=== PATIENT | male | born 1980 | race Hispanic/Latino ===

== ENCOUNTER 2017-08-17 11:31 | Emergency (ER) | payer SELFPAY ==
[2017-08-17 11:49] VITALS: TEMP 98.2; O2SAT 100
[2017-08-17] MEDS ORDERED: Sodium Chloride 0.9% 1,000 ML IV STA (12:37)
[2017-08-17 13:33] LABS: BASO # 0.1 K/uL (0.0-0.2); BASO % 0.9 % (0.0-2.0); EOS % 0.1 % (0.0-4.0); HEMOGLOBIN 14.2 g/dL (12.0-18.0); LYMPH # 1.9 K/uL (1.0-4.3); LYMPH % 18.6 % (20.0-40.0); MEAN CORPUSCULAR HEMOGLOBIN 27.2 pg (27.0-31.0); MEAN CORPUSCULAR HGB CONC 33.6 g/dL (33.0-37.0); MEAN PLATELET VOLUME 7.5 fl (7.2-11.7); MONO # 0.7 K/uL (0.0-0.8); MONO % 6.5 % (0.0-10.0); NEUT # 7.7 K/uL (1.8-7.0); NEUT % 73.9 % (50.0-75.0); NRBC % 0.1 % (0.0-0.0); RBC 5.21 Mil/uL (4.40-5.90); RED CELL DISTRIBUTION WIDTH 15.2 % (11.5-14.5); WHITE BLOOD COUNT 10.4 K/uL (4.8-10.8)
[2017-08-17 13:36] LABS: URINE BACTERIA RARE (<OCC); URINE BILIRUBIN NEGATIVE (NEGATIVE); URINE BLOOD NEGATIVE (NEGATIVE); URINE CLARITY CLOUDY (Clear); URINE COLOR AMBER (YELLOW); URINE GLUCOSE (UA) NEG (Normal); URINE LEUKOCYTE ESTERASE NEG Leu/uL (Negative); URINE PROTEIN 30 mg/dL (NEGATIVE)
[2017-08-17 13:50] LABS: ALB/GLOB RATIO 1.1 (1.0-2.1); ALBUMIN 4.7 g/dL (3.5-5.0); ALT/SGPT 24 U/L (21-72); AST/SGOT 31 U/L (17-59); BLOOD UREA NITROGEN 15 mg/dl (9-20); CALCIUM 10.3 mg/dL (8.4-10.2); GFR AFRICAN-AMERICAN > 60; GFR NON-AFRICAN AMERICAN > 60
[2017-08-17 13:51] LABS: BARBITURATES, UR NEGATIVE (NEGATIVE); BENZODIAZEPINES, UR NEGATIVE (NEGATIVE); OPIATES, UR POSITIVE (NEGATIVE); PHENCYCLIDINE, UR NEGATIVE (NEGATIVE)
--- NOTE | 2017-08-17 14:14 | ED PDOC ---
Syncope/Near Syncope/Dizziness Time Seen by Provider: 08/17/17 12:15 Chief Complaint (Nursing): Syncope Chief Complaint (Provider): Syncope History Per: Patient History/Exam Limitations: no limitations Onset/Duration Of Symptoms: Sudden Onset Additional Complaint(s): 37 year old male presents to the emergency department for an evaluation of syncope prior to arrival. Patient states he was at work, felt lightheaded then passed out. He reports that co-workers saw him hit his head as he fell down. In ED, he only complains of left-sided abdominal pain associated with nausea and decreased food or liquid intake, which has been ongoing for a few days. He denies any recent bowel movements, prior abdominal issues or drug use. PMD: none provided Past Medical History Reviewed: Historical Data, Nursing Documentation, Vital Signs Vital Signs: Last Vital Signs Temp 98.2 F 08/17/17 11:48 Pulse 79 08/17/17 11:48 Resp 20 08/17/17 11:48 BP 163/93 H 08/17/17 11:48 Pulse Ox 100 08/17/17 11:48 - Medical History PMH: No Chronic Diseases - Surgical History Surgical History: No Surg Hx - Family History Family History: States: Unknown Family Hx - Social History Current smoker - smoking cessation education provided: No Alcohol: None Drugs: Denies - Allergies Allergies/Adverse Reactions: Allergies Allergy/AdvReac Type Severity Reaction Status Date / Time Penicillins Allergy RASH Verified 08/17/17 12:28 Review of Systems ROS Statement: Except As Marked, All Systems Reviewed And Found Negative Gastrointestinal: Positive for: Nausea, Abdominal Pain (left-sided), Other ( decreased PO intake). Negative for: Diarrhea Neurological: Positive for: Dizziness (lightheaded/LOC), Other (head injury) Physical Exam - Reviewed Nursing Documentation Reviewed: Yes Vital Signs Reviewed: Yes - Physical Exam Appears: Positive for: Non-toxic, No Acute Distress Head Exam: Positive for: ATRAUMATIC, NORMAL INSPECTION, NORMOCEPHALIC Cardiovascular/Chest: Positive for: Regular Rate, Rhythm, Chest Non Tender Respiratory: Positive for: Normal Breath Sounds. Negative for: Wheezing, Respiratory Distress Gastrointestinal/Abdominal: Positive for: Soft, Tenderness (left-sided), Guarding Extremity: Positive for: Normal ROM (upper/lower), Other (multiple injection myers to upper) Neurologic/Psych: Positive for: Alert, spinning bath patroller II-XII (intact), Oriented, Other ( speaking full sentences). Negative for: Motor/Sensory Deficits - Laboratory Results Result Diagrams: 08/17/17 13:25 08/17/17 13:25 - ECG O2 Sat by Pulse Oximetry: 100 (RA) Pulse Ox Interpretation: Normal Medical Decision Making Medical Decision Making: Initial Impression: Syncope; Abdominal pain Initial Plan: * CT ABD/pelis with IV constrast * CT head without contrast * EKG * CMP * Urine drug screen * CBC * NS 1,000ml IV per 1,000mls/hr * Urine culture * Xray hip * UA Time: 1350 --Urine: positive for cocaine and opiates. Patient initially denied drug use. --Discussed positive results with patient. He states that he misunderstood provider regarding recent drug use. Further reports that he takes Ativan at home for anxiety but last use was a week ago. Time: 1413 --Patient is asking for pain medication for his current anxiety. --Ativan 0.5mg PO ordered. Time: [address] FINDINGS: HEMORRHAGE: No intracranial hemorrhage. BRAIN: Smith-white matter differentiation is preserved. There is no mass, mass effect or abnormal extra-axial fluid collection. There is no territorial infarction. VENTRICLES: The ventricles are normal in size, shape and configuration. CALVARIUM: The skull base and calvarium are normal. PARANASAL SINUSES: Predominantly clear. MASTOID AIR CELLS: Predominantly clear. OTHER FINDINGS: None. IMPRESSION: No acute intracranial abnormality. Time: 1558 Abd / Pelvis CT FINDINGS: LOWER THORAX: The visualized lungs are clear. LIVER: The liver is normal in size and there is diffuse fatty infiltration. No gross lesion or ductal dilatation. GALLBLADDER AND BILE DUCTS: The gallbladder is well distended without calcified gallstones. PANCREAS: The pancreas is normal in size and there is homogeneous enhancement. No ductal dilatation or mass. SPLEEN: There is borderline splenomegaly. ADRENALS: No discrete nodules. KIDNEYS AND URETERS: Both kidneys are normal in size and there is homogeneous enhancement without hydronephrosis or mass. VASCULATURE: No aortic aneurysm. BOWEL: No small bowel loops are normal in caliber. There is left colonic diverticulosis without CT evidence for acute diverticulitis. No bowel dilatation, wall thickening or obstruction. APPENDIX: Normal appendix. PERITONEUM: No free fluid. No free air. LYMPH NODES: No enlarged lymph nodes. BLADDER: Grossly normal in appearance. REPRODUCTIVE: The prostate gland is normal in size. BONES: No acute fracture. Within normal limits for the patient's age. OTHER FINDINGS: None. IMPRESSION: No acute abdominal or pelvic abnormality. Time: 1605 Left Hip XR FINDINGS: BONES: The pelvic ring is intact. There is no acute displaced fracture or bone destruction. JOINTS: Bone alignment is normal. There is moderate to severe degenerative osteoarthrosis in the hip joints, worse on the left. SOFT TISSUES: Normal. OTHER FINDINGS: None. IMPRESSION: No acute displaced fracture or dislocation Please note occult fractures cannot be excluded on plain radiographs. If there is a persistent clinical concern, an MRI of the hip may be performed for further evaluation. Scribe Attestation: Documented by Hilary Aldridge, acting as a scribe for Mercedes Paredes PA-C. Provider Scribe Attestation: All medical record entries made by the Scribe were at my direction and personally dictated by me. I have reviewed the chart and agree that the record accurately reflects my personal performance of the history, physical exam, medical decision making, and the department course for this patient. I have also personally directed, reviewed, and agree with the discharge instructions and disposition. Disposition - Clinical Impression Clinical Impression: Abdominal pain, Syncope - Patient ED Disposition Is Patient to be Admitted: No Counseled Patient/Family Regarding: Diagnosis, Need For Followup - Disposition Disposition: Routine/Home Disposition Time: 17:08 Condition: STABLE Instructions: Syncope (Fainting), Acute Abdomen (Belly Pain), Adult (DC) Forms: [employer] ([place])
[2017-08-17] MEDS ORDERED: Iohexol 300 100 ML IJ ONE (14:47)
--- NOTE | 2017-08-17 15:21 | CT ---
PROCEDURE: CT HEAD WITHOUT CONTRAST. HISTORY: Syncope COMPARISON: None available. TECHNIQUE: Axial computed tomography images were obtained through the head/brain without intravenous contrast. Radiation dose: Total exam DLP = 827.34 mGy-cm. This CT exam was performed using one or more of the following dose reduction techniques: Automated exposure control, adjustment of the mA and/or kV according to patient size, and/or use of iterative reconstruction technique. FINDINGS: HEMORRHAGE: No intracranial hemorrhage. BRAIN: Smith-white matter differentiation is preserved. There is no mass, mass effect or abnormal extra-axial fluid collection. There is no territorial infarction. VENTRICLES: The ventricles are normal in size, shape and configuration. CALVARIUM: The skull base and calvarium are normal. PARANASAL SINUSES: Predominantly clear. MASTOID AIR CELLS: Predominantly clear. OTHER FINDINGS: None. IMPRESSION: No acute intracranial abnormality.
--- NOTE | 2017-08-17 16:00 | CT ---
PROCEDURE: CT Abdomen and Pelvis with contrast HISTORY: Left sided abdominal pain COMPARISON: None. TECHNIQUE: CT scan of the abdomen and pelvis was performed after administration of intravenous contrast. Oral contrast was not administered. Coronal and sagittal reformatted images were obtained. Contrast dose: 95 cc Omnipaque 300 Radiation dose: Total exam DLP = 1114.52 mGy-cm. This CT exam was performed using one or more of the following dose reduction techniques: Automated exposure control, adjustment of the mA and/or kV according to patient size, and/or use of iterative reconstruction technique. FINDINGS: LOWER THORAX: The visualized lungs are clear. LIVER: The liver is normal in size and there is diffuse fatty infiltration. No gross lesion or ductal dilatation. GALLBLADDER AND BILE DUCTS: The gallbladder is well distended without calcified gallstones. PANCREAS: The pancreas is normal in size and there is homogeneous enhancement. No ductal dilatation or mass. SPLEEN: There is borderline splenomegaly. ADRENALS: No discrete nodules. KIDNEYS AND URETERS: Both kidneys are normal in size and there is homogeneous enhancement without hydronephrosis or mass. VASCULATURE: No aortic aneurysm. BOWEL: No small bowel loops are normal in caliber. There is left colonic diverticulosis without CT evidence for acute diverticulitis. No bowel dilatation, wall thickening or obstruction. APPENDIX: Normal appendix. PERITONEUM: No free fluid. No free air. LYMPH NODES: No enlarged lymph nodes. BLADDER: Grossly normal in appearance. REPRODUCTIVE: The prostate gland is normal in size. BONES: No acute fracture. Within normal limits for the patient's age. OTHER FINDINGS: None. IMPRESSION: No acute abdominal or pelvic abnormality. Mild left colonic diverticulosis without CT evidence for acute diverticulitis.
--- NOTE | 2017-08-17 16:07 | RAD ---
PROCEDURE: Left Hip X-ray Radiographs. HISTORY: Syncope COMPARISON: None. FINDINGS: BONES: The pelvic ring is intact. There is no acute displaced fracture or bone destruction. JOINTS: Bone alignment is normal. There is moderate to severe degenerative osteoarthrosis in the hip joints, worse on the left. SOFT TISSUES: Normal. OTHER FINDINGS: None. IMPRESSION: No acute displaced fracture or dislocation Please note occult fractures cannot be excluded on plain radiographs. If there is a persistent clinical concern, an MRI of the hip may be performed for further evaluation.
[2017-08-17 17:46] VITALS: BP 150/90; PULSE 76; RESP 18
--- NOTE | 2017-08-17 20:13 | CARD ---
APPROVED REPORT EKG Measurement Heart [id number] WI [id number] <Conclusion> Normal sinus rhythm Possible Left atrial enlargement Left axis deviation Prolonged QT Abnormal ECG
== END 2017-08-17 17:13 | disposition home or self-care (01) ==
LOC: H.ER 11:31
DX: R10.9 Unspecified abdominal pain (principal); R55 Syncope and collapse; Z88.0 Allergy status to penicillin
CPT/HCPCS: 70450; 73502; 74177; 80053; 81003; 85025; 87086; 93005; 96374; 99285; G0480; J1885; J7040; Q9967